=== PATIENT | male | born 1970 | race Caucasian/White ===

== ENCOUNTER → 2021-12-05 | Day surgery (SDC) | payer OTHER ==
[~2021-12-05] VITALS: Ht 188 cm; Wt 131.5 kg
[~2021-12-05] MED LIST: DAILY VALUE1 EACH PO; PERCOCET 5-3251 EACH PO
== END | disposition home or self-care (01) ==
LOC: FAS 07:03
DX: K42.0 Umbilical hernia with obstruction, without gangrene (principal); E66.8 Other obesity; Z80.0 Family history of malignant neoplasm of digestive organs
CPT/HCPCS: 93005; C1781; J0690; J1100; J1170; J1885; J2250; J2405; J3010; J7120